=== PATIENT | female | born 1935 | race Caucasian/White ===

== ENCOUNTER → 2020-03-16 | Outpatient (CLI) | payer MEDICARE ==
[~2020-03-16] MED LIST: ALBU8.5H8 INH; AMINOPHYLLINE 25 MG/ML, 10ML ONE; HYDR-3237 PO; HYDR25TA6 PO; LEVO500T8 PO; METR-90 PO; REGADENOSON 0.4 MG/5 ML SYRINGE ONE
== END | disposition home or self-care (01) ==
LOC: CFH 08:42
PROVIDERS: ATTEND Internal Medicine Cardiovascular Disease
DX: I08.8 Other rheumatic multiple valve diseases (principal); I11.9 Hypertensive heart disease without heart failure; R94.31 Abnormal electrocardiogram [ECG] [EKG]; R07.9 Chest pain, unspecified; R06.02 Shortness of breath
CPT/HCPCS: 78452; 93017; 93306; A9502; J0280; J2785